=== PATIENT | female | born 1960 | race Caucasian/White ===

== ENCOUNTER 2019-10-03 12:39 | Day surgery (SDC) | payer MEDICARE ==
[~2019-10-03] VITALS: Ht 152.4 cm; Wt 93.3 kg
[~2019-10-03 12:39] MED LIST: ALBU90OI INH; Aspirin EC81 MG; CONEST.625; CYCL10 PO; ESCI20 PO; EXTRA STRENGTH500 MG PO; Estradiol1 MG PO; FOLI1 PO; GABA300 PO; GABA400 PO; HYDHCL25 PO; LEVE500 PO; LORA1 PO; Levothyroxine137 MCG PO; MIRALAX17 GM PO; Mirapex0.25 MG PO; ONDA8 PO; Omeprazole20 M1; Oxycodone HCl20 M1 PO; Phenergan6.25 MG/5 PO; VIIBRYD20 MG PO; ZALE10 PO; Zanaflex4 M1 PO; Zyprexa10 MG PO
== END 2019-10-03 16:24 | disposition home or self-care (01) ==
LOC: ORSCSDS 12:39
PROVIDERS: Orthopaedic Surgery
PROC: 0SBC4ZZ Excision of Right Knee Joint, Percutaneous Endoscopic Approach (ICD-10-PCS; principal; 2019-10-03 14:30)
DX: S83.281A Other tear of lateral meniscus, current injury, right knee, initial encounter (principal); M71.21 Synovial cyst of popliteal space [Baker], right knee; M17.11 Unilateral primary osteoarthritis, right knee; J44.9 Chronic obstructive pulmonary disease, unspecified; G47.33 Obstructive sleep apnea (adult) (pediatric); F17.210 Nicotine dependence, cigarettes, uncomplicated; F43.10 Post-traumatic stress disorder, unspecified; E66.01 Morbid (severe) obesity due to excess calories; Z68.41 Body mass index [BMI] 40.0-44.9, adult; E03.9 Hypothyroidism, unspecified; G40.909 Epilepsy, unspecified, not intractable, without status epilepticus; Z79.899 Other long term (current) drug therapy
CPT/HCPCS: A9270-GY; J0171; J0690; J1100; J1885; J2250; J2405; J2704; J3010; J7120

== ENCOUNTER → 2020-07-30 | Outpatient (CLI) | payer MEDICARE ==
[2020-07-30 19:23] LABS: U Amphetamine Screen Not Detected; U Barbituate Screen Not Detected; U Benzodiazapine Screen Not Detected; U Buprenorphine Screen Not Detected; U Cannabinoids Screen Not Detected; U Cocaine Screen Not Detected; U Methadone Screen Not Detected; U Methamphetamine Screen Not Detected; U Opiates Screen DETECTED; U Oxycodone Screen Not Detected; U Phencyclidine Screen Not Detected; U Propoxyphene Screen Not Detected
== END | disposition home or self-care (01) ==
LOC: LAB 14:00 → LAB SHORT 14:00 → LAB FUT 07-18 10:40
PROVIDERS: Nurse Practitioner Psychiatric/Mental Health
DX: Z51.81 Encounter for therapeutic drug level monitoring (principal); Z79.899 Other long term (current) drug therapy

== ENCOUNTER → 2020-12-20 | Outpatient (CLI) | payer MEDICARE, OTHER ==
[2020-12-20 13:12] LABS: Source, Urine Clean Catch
[2020-12-20 14:43] LABS: Appearance, Urine Clear (Clear); Bilirubin, Urine Neg (Neg); Blood, Urine 2+ (Neg); Color, Urine Yellow (P-Yellow); Glucose Qualitative, Urine Neg (Neg); Ketones, Urine Neg (Neg); Leukocyte Esterase, Urine 1+ (Neg); Nitrite, Urine Neg (Neg); Protein, Urine 1+ (Neg); Urobilinogen, Urine 1+ (Normal)
[2020-12-20 15:09] LABS: Bacteria Not Seen /hpf; Red Blood Cells, Urine 0-2 /hpf (0-2); Squamous Epithelial Cells Few /hpf (Few)
== END | disposition home or self-care (01) ==
LOC: LAB SHORT 10:20
PROVIDERS: Internal Medicine
DX: R35.0 Frequency of micturition (principal)
CPT/HCPCS: 81001; 87086

== ENCOUNTER 2021-05-22 12:02 | Emergency (ER) | payer MEDICARE, OTHER ==
[~2021-05-22] VITALS: Ht 152.4 cm; Wt 83.5 kg
[2021-05-22 16:06] LABS: BASOPHILS ABSOLUTE AUTO 0.07 K/mm3 (0.00-0.23); BASOPHILS PERCENT AUTO 1 % (0-2); EOSINOPHILS ABSOLUTE AUTO 0.51 K/mm3 (0.00-0.68); EOSINOPHILS PERCENT AUTO 7 % (0-6); Hematocrit 36.8 % (33.0-51.0); Hemoglobin 12.1 g/dL (11.5-16.0); IMMATURE GRAN ABSOLUTE AUTO 0.05 K/mm3 (0.00-0.10); IMMATURE GRAN PERCENT AUTO 1 % (0-1); LYMPHOCYTES ABSOLUTE AUTO 1.94 K/mm3 (0.84-5.20); LYMPHOCYTES PERCENT AUTO 26 % (21-46); MONOCYTES ABSOLUTE AUTO 0.59 K/mm3 (0.16-1.47); MONOCYTES PERCENT AUTO 8 % (4-13); Mean Corpuscular HGB 28.8 pg (26.0-34.0); Mean Corpuscular HGB Conc 32.9 g/dL (31.5-36.5); Mean Corpuscular Volume 88 fL (80-100); Mean Platelet Volume 11.2 fL (9.1-12.4); NEUTROPHILS ABSOLUTE AUTO 4.31 K/mm3 (1.96-9.15); NEUTROPHILS PERCENT AUTO 58 % (41-73); Platelet Count 291 K/mm3 (150-400); RDW Coefficient Variation 12.7 % (11.7-14.2); RDW Standard Deviation 40.4 fL (35.1-46.3); White Blood Cell Count 7.47 K/mm3 (4.00-11.30)
[2021-05-22 16:23] LABS: Albumin, Blood 3.5 g/dL (3.4-5.0); Albumin/Globulin Ratio 1.1 (0.8-1.8); Bilirubin, Total 0.5 mg/dL (0.1-1.0); Bun/Creatinine Ratio 17.1 (12.0-20.0); Calcium, Blood 9.1 mg/dL (8.5-10.1); Creatinine, Blood 1.05 mg/dL (0.40-1.00); Globulin, Blood 3.1 g/dL (2.2-4.0); Potassium, Blood 2.9 mmol/L (3.5-5.5); Total Protein, Blood 6.6 g/dL (6.4-8.2)
[2021-05-22 16:26] LABS: Thyroid Stimulating Hormone 0.102 uIU/mL (0.360-4.800)
[2021-05-22 18:05] LABS: Source, Urine Clean Catch
[2021-05-22 18:26] LABS: Appearance, Urine Clear (Clear); Bilirubin, Urine Neg (Neg); Blood, Urine 2+ (Neg); Color, Urine Yellow (P-Yellow); Glucose Qualitative, Urine Neg (Neg); Ketones, Urine Neg (Neg); Leukocyte Esterase, Urine 2+ (Neg); Nitrite, Urine Neg (Neg); Protein, Urine Neg (Neg); Urobilinogen, Urine NORM (Normal)
[2021-05-22] MEDS ORDERED: K-Dur20 MEQ PO (18:42)
[2021-05-22] MEDS ORDERED: Roxicodone5 MG PO (18:42)
[2021-05-22 18:58] LABS: Bacteria Mod /hpf; Squamous Epithelial Cells Mod /hpf (Few)
== END 2021-05-22 19:10 | disposition home or self-care (01) ==
LOC: ER 12:02
PROVIDERS: Emergency Medicine; Physician Assistant
DX: R29.898 Other symptoms and signs involving the musculoskeletal system (principal); R10.9 Unspecified abdominal pain; F17.200 Nicotine dependence, unspecified, uncomplicated; Z88.5 Allergy status to narcotic agent; Z88.8 Allergy status to other drugs, medicaments and biological substances; Z79.899 Other long term (current) drug therapy; Z98.890 Other specified postprocedural states
CPT/HCPCS: 36415; 51798; 72129; 80053; 81001; 83690; 83735; 84443; 85025; 85651; 86140; 87086; 93005; 93010; A9270; J2405; J7030; Q9967

== ENCOUNTER → 2021-09-12 | Outpatient (CLI) | payer MEDICARE, OTHER ==
[~2021-09-12] MED LIST changes: +K-Dur20 MEQ PO; +Roxicodone5 MG PO
[2021-09-13 14:08] LABS: Creatinine, Urine Random 52.1 mg/dL (27.00-270.00); Protein, Urine Random 6.9 mg/dL (0.0-11.9); Protein/Creat Ratio, Ur Random 0.1
[2021-09-13 14:15] LABS: Potassium, Urine, Random 12.2 mmol/L (12.0-75.0)
== END | disposition home or self-care (01) ==
LOC: LAB → LAB SHORT
PROVIDERS: Internal Medicine Nephrology
DX: N18.2 Chronic kidney disease, stage 2 (mild) (principal); R31.29 Other microscopic hematuria; Z86.39 Personal history of other endocrine, nutritional and metabolic disease
CPT/HCPCS: 82570; 84133; 84156

== ENCOUNTER → 2022-01-17 | Outpatient (CLI) | payer MEDICARE, OTHER ==
[~2022-01-17] MED LIST changes: +CEPH250A PO
== END | disposition home or self-care (01) ==
LOC: LAB SHORT 17:07 → LAB 17:07
DX: N30.01 Acute cystitis with hematuria (principal)
CPT/HCPCS: 87086

== ENCOUNTER 2022-01-28 09:32 | Emergency (ER) | payer MEDICARE, OTHER ==
[~2022-01-28] VITALS: Ht 160 cm; Wt 72.6 kg
[~2022-01-28 09:32] MED LIST changes: -CEPH250A PO
[2022-01-28 10:11] LABS: Source, Urine Clean Catch
[2022-01-28] MEDS ORDERED: CEPH250A PO (10:15)
[2022-01-28 10:20] LABS: Appearance, Urine Hazy (Clear); Blood, Urine 3+ (Neg); Color, Urine Amber (P-Yellow); Glucose Qualitative, Urine Neg (Neg); Ketones, Urine 1+ (Neg); Leukocyte Esterase, Urine 3+ (Neg); Nitrite, Urine Neg (Neg); Protein, Urine 1+ (Neg); Urobilinogen, Urine 1+ (Normal)
[2022-01-28 10:23] LABS: BASOPHILS ABSOLUTE AUTO 0.04 K/mm3 (0.00-0.23); BASOPHILS PERCENT AUTO 1 % (0-2); EOSINOPHILS ABSOLUTE AUTO 0.05 K/mm3 (0.00-0.68); EOSINOPHILS PERCENT AUTO 1 % (0-6); Hematocrit 37.3 % (33.0-51.0); Hemoglobin 12.2 g/dL (11.5-16.0); IMMATURE GRAN ABSOLUTE AUTO 0.02 K/mm3 (0.00-0.10); IMMATURE GRAN PERCENT AUTO 0 % (0-1); LYMPHOCYTES ABSOLUTE AUTO 1.19 K/mm3 (0.84-5.20); LYMPHOCYTES PERCENT AUTO 15 % (21-46); MONOCYTES ABSOLUTE AUTO 0.47 K/mm3 (0.16-1.47); MONOCYTES PERCENT AUTO 6 % (4-13); Mean Corpuscular HGB 29.5 pg (26.0-34.0); Mean Corpuscular HGB Conc 32.7 g/dL (31.5-36.5); Mean Corpuscular Volume 90 fL (80-100); Mean Platelet Volume 11.7 fL (9.1-12.4); NEUTROPHILS ABSOLUTE AUTO 6.05 K/mm3 (1.96-9.15); NEUTROPHILS PERCENT AUTO 77 % (41-73); NRBC ABSOLUTE 0.02 K/mm3 (0.00-0.02); NRBC Auto 0.3 /100 WBC (0.0-0.2); Platelet Count 195 K/mm3 (150-400); RDW Coefficient Variation 12.9 % (11.7-14.2); RDW Standard Deviation 43.3 fL (35.1-46.3); Red Blood Cell Count 4.13 M/mm3 (3.80-5.20); White Blood Cell Count 7.82 K/mm3 (4.00-11.30)
[2022-01-28 10:32] LABS: Bilirubin, Urine 1+ (Neg)
[2022-01-28 10:39] LABS: Squamous Epithelial Cells Many /hpf (Few)
[2022-01-28 10:40] LABS: Amorphous Light (0-Heavy); Bacteria Many /hpf
[2022-01-28 10:42] LABS: Albumin, Blood 3.7 g/dL (3.4-5.0); Albumin/Globulin Ratio 1.2 (0.8-1.8); Bilirubin, Total 0.6 mg/dL (0.1-1.0); Bun/Creatinine Ratio 10.7 (12.0-20.0); Creatinine, Blood 1.21 mg/dL (0.40-1.00); Globulin, Blood 3.1 g/dL (2.2-4.0); Potassium, Blood 4.2 mmol/L (3.5-5.5); Total Protein, Blood 6.8 g/dL (6.4-8.2)
[2022-01-28 12:45] LABS: Source, Urine Straight Cath
[2022-01-28 13:18] LABS: Bilirubin, Urine Neg (Neg); Blood, Urine 2+ (Neg); Color, Urine Yellow (P-Yellow); Glucose Qualitative, Urine Neg (Neg); Ketones, Urine Neg (Neg); Leukocyte Esterase, Urine Neg (Neg); Nitrite, Urine Neg (Neg); Protein, Urine Neg (Neg); Urobilinogen, Urine NORM (Normal)
[2022-01-28 13:51] LABS: Appearance, Urine Hazy (Clear)
[2022-01-28 13:52] LABS: Bacteria Mod /hpf; Red Blood Cells, Urine 0-2 /hpf (0-2); Renal Epithelial Rare /hpf (0-Rare); Squamous Epithelial Cells Rare /hpf (Few); White Blood Cells, Urine 0-2 /hpf (0-5)
== END 2022-01-28 14:13 | disposition home or self-care (01) ==
LOC: ER 09:32
PROVIDERS: Emergency Medicine
DX: R55 Syncope and collapse (principal); Z87.891 Personal history of nicotine dependence
CPT/HCPCS: 36415; 51701; 80053; 81001; 84484; 85025; 87077; 87086; 87186; 93005; 93010; 96361-59; 96374-59; 99285-25; J1885; J7030

== ENCOUNTER 2023-01-02 11:39 | Day surgery (SDC) | payer MEDICARE, OTHER ==
[~2023-01-02] VITALS: Ht 149.9 cm; Wt 55.7 kg
[2023-01-02] VITALS (20 sets, daily range): BP systolic 80–141; BP diastolic 46–90
[~2023-01-02 11:39] MED LIST changes: +CEPH250A PO
--- NOTE | 2023-01-02 12:20 | NUR ---
Ambulatory in Day Surgery Patient confirms NPO status and agrees with scheduled surgery. History, Chart, Medications and Allergies reviewed before start of procedure.Pre-Op teaching done. Pt verbalizes understanding. Patient States Post-Procedure ride home has been arranged.
--- NOTE | 2023-01-02 12:49 | NUR ---
01/02/23 1249 Samson Anderson HISTORY, CHART, MEDICATIONS AND ALLERGIES REVIEWED BEFORE START OF PROCEDURE. PATIENT CONFIRMS NPO STATUS AND AGREES WITH SCHEDULED PROCEDURE. 3-LEAD EKG REVIEWED WITH PHYSICIAN PRIOR TO START OF PROCEDURE. MONITOR INTACT WITH CONTINUOUS PULSE OXIMETRY,CAPNOGRAPHY, 3-LEAD EKG, INTERMITTENT BP. SUPPLEMENTAL O2 TO BE TITRATED THROUGHOUT PROCEDURE TO MAINTAIN O2 SATURATION ABOVE 90%. PATIENT DETERMINED TO BE ASA APPROPRIATE FOR PROPOFOL SEDATION PRIOR TO START OF PROCEDURE BY
--- NOTE | 2023-01-02 13:30 | NUR ---
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
== END 2023-01-02 13:30 | disposition home or self-care (01) ==
LOC: ORSCMMR 11:39 → ORSCSDS 12:30 → ORD 12:30 → ORSCMMR 12:30
PROVIDERS: Internal Medicine Gastroenterology
PROC: 0DJD8ZZ Inspection of Lower Intestinal Tract, Via Natural or Artificial Opening Endoscopic (ICD-10-PCS; principal; 2023-01-02 12:30)
DX: K59.09 Other constipation (principal); R63.4 Abnormal weight loss; K63.89 Other specified diseases of intestine; K57.30 Diverticulosis of large intestine without perforation or abscess without bleeding; K64.8 Other hemorrhoids; E03.9 Hypothyroidism, unspecified; M79.7 Fibromyalgia; F31.9 Bipolar disorder, unspecified; F25.9 Schizoaffective disorder, unspecified; G40.909 Epilepsy, unspecified, not intractable, without status epilepticus; N18.31 Chronic kidney disease, stage 3a; J45.909 Unspecified asthma, uncomplicated; F43.10 Post-traumatic stress disorder, unspecified; K21.9 Gastro-esophageal reflux disease without esophagitis; Z87.891 Personal history of nicotine dependence; Z79.899 Other long term (current) drug therapy
CPT/HCPCS: J2704; J7120

== ENCOUNTER 2023-02-13 08:08 | Day surgery (SDC) | payer MEDICARE ==
[~2023-02-13] VITALS: Ht 149.9 cm; Wt 54.3 kg
[2023-02-13] MEDS ORDERED: LINZESS72 MCG (08:47)
[2023-02-13] MEDS ORDERED: ONDA4 (08:48)
[2023-02-13] MEDS ORDERED: PREG25 (08:48)
[2023-02-13] MEDS ORDERED: Mirapex0.125 MG (08:48)
[2023-02-13] MEDS ORDERED: ARIPIPRAZOL1 MG/1 ML (08:48)
[2023-02-13] MEDS ORDERED: DOCCAL240 (08:48)
[2023-02-13] MEDS ORDERED: [UNRECOGNIZED DRUG - OTHER] (08:49)
[2023-02-13] MEDS ORDERED: ABILIFY MYCITE5 M2 (08:49)
[2023-02-13] MEDS ORDERED: BENZTROPINE (08:49)
[2023-02-13] MEDS ORDERED: CHLO10T (08:49)
[2023-02-13] MEDS ORDERED: MELO7.5 (08:50)
[2023-02-13] MEDS ORDERED: TRAZ50 (08:50)
[2023-02-13] MEDS ORDERED: Mag-Tab Sr84 MG (08:50)
[2023-02-13] MEDS ORDERED: BUPRENORPHINE (08:50)
[2023-02-13 11:01] VITALS: BP 124/66
== END 2023-02-13 11:11 | disposition home or self-care (01) ==
LOC: ORSCSDS 08:08
PROVIDERS: Internal Medicine Gastroenterology
PROC: 0D757ZZ Dilation of Esophagus, Via Natural or Artificial Opening (ICD-10-PCS; principal; 2023-02-13 09:45)
PROC: 0DB48ZX Excision of Esophagogastric Junction, Via Natural or Artificial Opening Endoscopic, Diagnostic (ICD-10-PCS; principal; 2023-02-13 09:45)
PROC: 0DB88ZX Excision of Small Intestine, Via Natural or Artificial Opening Endoscopic, Diagnostic (ICD-10-PCS; principal; 2023-02-13 09:45)
PROC: 0DB98ZX Excision of Duodenum, Via Natural or Artificial Opening Endoscopic, Diagnostic (ICD-10-PCS; principal; 2023-02-13 09:45)
DX: K21.00 Gastro-esophageal reflux disease with esophagitis, without bleeding (principal); R93.3 Abnormal findings on diagnostic imaging of other parts of digestive tract; K29.70 Gastritis, unspecified, without bleeding; N18.31 Chronic kidney disease, stage 3a; J45.909 Unspecified asthma, uncomplicated; M79.7 Fibromyalgia; R13.10 Dysphagia, unspecified; K58.1 Irritable bowel syndrome with constipation; E03.9 Hypothyroidism, unspecified; F43.10 Post-traumatic stress disorder, unspecified; F17.210 Nicotine dependence, cigarettes, uncomplicated; Z79.899 Other long term (current) drug therapy
CPT/HCPCS: 88305; 88312; 88342; J2704; J7120

== ENCOUNTER 2023-02-24 16:45 | Day surgery (SDC) | payer MEDICARE ==
[2023-02-24 17:19] VITALS: BP 104/64
--- NOTE | 2023-02-24 19:50 | NUR ---
PT SENT WITH COMPOUNDED EYE DROPS.
== END 2023-02-24 22:51 | disposition home or self-care (01) ==
LOC: ATC 16:45
DX: H16.031 Corneal ulcer with hypopyon, right eye (principal); J45.909 Unspecified asthma, uncomplicated; G43.909 Migraine, unspecified, not intractable, without status migrainosus; F17.210 Nicotine dependence, cigarettes, uncomplicated; Z88.1 Allergy status to other antibiotic agents
CPT/HCPCS: 99212; A9270; J0690; J3260

== ENCOUNTER → 2023-02-24 | Outpatient (CLI) | payer MEDICARE, OTHER ==
[~2023-02-24] MED LIST changes: +ABILIFY MYCITE5 M2; +ARIPIPRAZOL1 MG/1 ML; +BENZTROPINE; +BUPRENORPHINE; +CHLO10T; +DOCCAL240; +LINZESS72 MCG; +MELO7.5; +Mag-Tab Sr84 MG; +Mirapex0.125 MG; +ONDA4; +PREG25; +TRAZ50; +[UNRECOGNIZED DRUG - OTHER]
== END | disposition home or self-care (01) ==
LOC: LAB 08:29 → LAB SHORT 08:29
DX: H16.001 Unspecified corneal ulcer, right eye (principal)
CPT/HCPCS: 87070; 87077; 87147; 87186; 87205

== ENCOUNTER 2023-02-26 11:55 | Day surgery (SDC) | payer MEDICARE ==
--- NOTE | 2023-02-26 14:44 | NUR ---
PATIENT ARRIVED AND SHE AND HER HAD GIVEN HER OTHER EYE DROPS AT 1400 SO THEY DECLINED HAVING ME ADMINISTER THE FIRST DOSE. THEY SAID THEY WILL DO THE NEXT DOSE AT 1500 WHEN THEY GET HOME. THEY WERE EDUCATED ON THE NEED TO KEEP IN REFRIGERATOR AND THE EXPIRATION DATE ON THE LABEL. THEY ARE TO CALL WITH SEVERAL HOUR NOTICE WHEN THEY NEED A REFILL OF THEIR EYE DROPS. EXPECTED NEXT VISIT FOR DROPS ON THURSDAY
== END 2023-02-26 14:40 | disposition home or self-care (01) ==
LOC: ATC 11:55
DX: K59.09 Other constipation (principal); K22.89 Other specified disease of esophagus; R13.10 Dysphagia, unspecified; K21.9 Gastro-esophageal reflux disease without esophagitis; E03.9 Hypothyroidism, unspecified; N18.31 Chronic kidney disease, stage 3a; J45.909 Unspecified asthma, uncomplicated; Z88.5 Allergy status to narcotic agent; Z88.1 Allergy status to other antibiotic agents; Z88.8 Allergy status to other drugs, medicaments and biological substances; Z79.890 Hormone replacement therapy; Z79.899 Other long term (current) drug therapy
CPT/HCPCS: 99211; A9270; J3370

== ENCOUNTER 2023-03-10 09:04 | Emergency (ER) | payer MEDICARE, OTHER ==
[~2023-03-10] VITALS: Ht 149.9 cm; Wt 55.8 kg
[2023-03-10 10:24] LABS: BASOPHILS ABSOLUTE AUTO 0.02 K/mm3 (0.00-0.23); BASOPHILS PERCENT AUTO 0 % (0-2); EOSINOPHILS PERCENT AUTO 0 % (0-6); Hematocrit 29.1 % (33.0-51.0); Hemoglobin 9.7 g/dL (11.5-16.0); IMMATURE GRAN ABSOLUTE AUTO 0.01 K/mm3 (0.00-0.10); IMMATURE GRAN PERCENT AUTO 0 % (0-1); LYMPHOCYTES ABSOLUTE AUTO 0.79 K/mm3 (0.84-5.20); LYMPHOCYTES PERCENT AUTO 16 % (21-46); MONOCYTES ABSOLUTE AUTO 0.36 K/mm3 (0.16-1.47); MONOCYTES PERCENT AUTO 7 % (4-13); Mean Corpuscular HGB 29.9 pg (26.0-34.0); Mean Corpuscular HGB Conc 33.3 g/dL (31.5-36.5); Mean Corpuscular Volume 90 fL (80-100); Mean Platelet Volume 10.8 fL (9.1-12.4); NEUTROPHILS ABSOLUTE AUTO 3.79 K/mm3 (1.96-9.15); NEUTROPHILS PERCENT AUTO 76 % (41-73); Platelet Count 150 K/mm3 (150-400); RDW Coefficient Variation 13.3 % (11.7-14.2); RDW Standard Deviation 44.1 fL (35.1-46.3); Red Blood Cell Count 3.24 M/mm3 (3.80-5.20); White Blood Cell Count 4.97 K/mm3 (4.00-11.30)
[2023-03-10 11:10] LABS: Source, Urine Clean Catch
[2023-03-10 11:13] LABS: Bilirubin, Urine Neg (Neg); Blood, Urine Neg (Neg); Color, Urine Yellow (P-Yellow); Glucose Qualitative, Urine Neg (Neg); Ketones, Urine Neg (Neg); Leukocyte Esterase, Urine 2+ (Neg); Nitrite, Urine Neg (Neg); Protein, Urine Neg (Neg); Specific Gravity, Urine 1.015 (1.003-1.022); Urobilinogen, Urine NORM (Normal)
[2023-03-10 11:22] LABS: Appearance, Urine Hazy (Clear); Bacteria Mod /hpf; Red Blood Cells, Urine 0-2 /hpf (0-2)
[2023-03-10 11:23] LABS: Hyaline Casts 0-2 /lpf (0-2); Squamous Epithelial Cells Many /hpf (Few)
[2023-03-10 11:44] LABS: Albumin, Blood 3.2 g/dL (3.4-5.0); Albumin/Globulin Ratio 1.1 (0.8-1.8); Bilirubin, Total 0.3 mg/dL (0.1-1.0); Bun/Creatinine Ratio 13.5 (12.0-20.0); Calcium, Blood 8.8 mg/dL (8.5-10.1); Creatinine, Blood 0.97 mg/dL (0.40-1.00); Globulin, Blood 2.8 g/dL (2.2-4.0); Potassium, Blood 4.4 mmol/L (3.5-5.5)
[2023-03-10 12:30] VITALS: BP 153/75
== END 2023-03-10 13:04 | disposition home or self-care (01) ==
LOC: ER 09:04
PROVIDERS: Student in an Organized Health Care Education/Training Program
DX: I95.9 Hypotension, unspecified (principal); F17.200 Nicotine dependence, unspecified, uncomplicated; Z79.1 Long term (current) use of non-steroidal anti-inflammatories (NSAID); Z79.899 Other long term (current) drug therapy; Z88.1 Allergy status to other antibiotic agents; Z88.5 Allergy status to narcotic agent; Z88.8 Allergy status to other drugs, medicaments and biological substances; R55 Syncope and collapse; I51.7 Cardiomegaly; I35.1 Nonrheumatic aortic (valve) insufficiency
CPT/HCPCS: 71046; 80053; 81001; 82024; 82533; 84443; 85025; 87086; 93005; 93010; 93306; 99285-25

== ENCOUNTER → 2024-08-12 | Outpatient (CLI) | payer MEDICARE, OTHER ==
[~2024-08-12] MED LIST changes: +ABILIFY MYCITE10 M2 PO; +AIMOVIG AU140 MG/1 M SQ; +BENZ1 PO; +BUPRENORPHIN-N1 EAC1 SL; +CHLO100 PO; +COMBIVENT RESPIM4 G1; +LEVSOD100 PO; +LINZESS290 MCG PO; -MELO7.5; +MELO7.5 PO; +MONT10T PO; +POTA10T PO; +PRAM.125 PO; +PREG75 PO; +TRAZ100 PO; +Vitamin D1000 UNI1 PO; +[UNRECOGNIZED DRUG - OTHER] PO
[2024-08-12 13:51] LABS: Creatinine Urine 54.1 mg/dL (27.00-270.00); Protein, Urine Quantitative 8.2 mg/dL (0.0-11.9)
[2024-08-12 13:54] LABS: Microalbumin, Urine Quant. 5.42 mg/L (0.000-20.000)
== END | disposition home or self-care (01) ==
LOC: LAB SHORT 07:15 → LAB 07:15 → EDSTATUS 08-08 09:45 → LAB FUT 08-08 09:45
PROVIDERS: Internal Medicine Nephrology
DX: N18.30 Chronic kidney disease, stage 3 unspecified (principal); D63.1 Anemia in chronic kidney disease; N25.81 Secondary hyperparathyroidism of renal origin; E55.9 Vitamin D deficiency, unspecified; E78.00 Pure hypercholesterolemia, unspecified; D51.8 Other vitamin B12 deficiency anemias; D52.8 Other folate deficiency anemias; D50.9 Iron deficiency anemia, unspecified; R76.9 Abnormal immunological finding in serum, unspecified; R94.5 Abnormal results of liver function studies; R94.6 Abnormal results of thyroid function studies
CPT/HCPCS: 81050; 82043; 82570; 84156